=== PATIENT | male | born 1995 | race African-American/Black ===

== ENCOUNTER → 2018-01-02 | Outpatient (CLI) | payer OTHER | LOC: M LRY 10:30 | DX: M25.512 Pain in left shoulder (principal) | CPT/HCPCS: 73030; G0463 ==

== ENCOUNTER 2019-02-26 10:17 | Emergency (ER) | payer OTHER ==
[~2019-02-26] VITALS: Ht 170.2 cm; Wt 93.2 kg
[2019-02-26] MEDS ORDERED: ACETAMINOPHEN TAB 650MG DOSE (2X325MG) PO ONE (11:30)
[2019-02-26 11:39] LABS: APPEARANCE, URINE CLEAR (CLEAR); BACTERIA, URINE AUTO NEGATIVE (NEGATIVE); BILIRUBIN, URINE AUTO NEGATIVE (NEGATIVE); BLOOD, URINE BLOOD NEGATIVE (NEGATIVE); COLOR, URINE YELLOW (YELLOW); GLUCOSE, URINE (UA) AUTO NEGATIVE (NEGATIVE); KETONE, URINE AUTO NEGATIVE (NEGATIVE); LEUKOCYTE ESTERASE, URINE AUTO NEGATIVE (NEGATIVE); MUCUS, URINE SMALL (NEGATIVE); NITRITE, URINE AUTO NEGATIVE (NEGATIVE); PROTEIN, URINE AUTO NEGATIVE (NEGATIVE); RBC, URINE AUTO 0 /HPF (0-3); SPECIFIC GRAVITY URINE AUTO 1.017 (1.002-1.035); SQUAMOUS EPITHELIAL CELL UR AU 0 /HPF (0-6); UROBILINOGEN, URINE AUTO 0.2 mg/dL (0.0-2.0); WBC, URINE AUTO 0 /HPF (0-3)
[2019-02-26 11:43] LABS: BASO % 0.3 % (0.0-1.0); EOS # 0.1 10^3/uL (0.0-0.50); EOS % 2.2 % (0.0-3.0); HEMATOCRIT 45.4 % (42.0-52.0); HEMOGLOBIN 15.6 g/dl (13.5-17.5); LYMPH # 2.8 10^3/uL (1.5-6.5); LYMPH % 48.1 % (24.0-44.0); MEAN CORPUSCULAR HEMOGLOBIN 29.5 pg (27.0-33.0); MEAN CORPUSCULAR HGB CONC 34.4 g/dl (32.0-36.5); MEAN CORPUSCULAR VOLUME 85.8 fl (80.0-96.0); MONO # 0.4 10^3/uL (0.0-0.8); MONO % 6.4 % (0.0-5.0); NEUTROPHILS # 2.5 10^3/uL (1.8-7.7); NEUTROPHILS % 42.8 % (36.0-66.0); PLATELET COUNT, AUTOMATED 264 10^3/uL (150-450); RED BLOOD COUNT 5.29 10^6/uL (4.30-6.10); WHITE BLOOD COUNT 5.8 10^3/uL (4.0-10.0)
[2019-02-26 12:16] LABS: ALBUMIN 4.3 GM/DL (3.2-5.2); ALT/SGPT 40 U/L (12-78); BILIRUBIN,DIRECT < 0.1 MG/DL (0.0-0.2); BILIRUBIN,TOTAL 0.4 MG/DL (0.2-1.0); BLOOD UREA NITROGEN 15 MG/DL (7-18); CALCIUM LEVEL 9.4 MG/DL (8.5-10.1); CARBON DIOXIDE LEVEL 25 MEQ/L (21-32); CHLORIDE LEVEL 106 MEQ/L (98-107); CREATININE FOR GFR 1.05 MG/DL (0.70-1.30); GLOMERULAR FILTRATION RATE > 60.0 (>60); GLUCOSE, FASTING 99 MG/DL (70-100); LIPASE 72 U/L (73-393); POTASSIUM SERUM 4.3 MEQ/L (3.5-5.1); SODIUM LEVEL 136 MEQ/L (136-145)
[2019-02-26] MEDS ORDERED: ISOVUE-370 76% 100ML VIAL (Q9967) As Ordered ONE (12:39)
[2019-02-26] MEDS ORDERED: GI COCKTAIL 50ML BTL(HYOSCYAMINE/MAALOX/LIDOCAINE VISCOUS)(1:3:1) PO ONE (12:45)
[2019-02-26] MEDS ORDERED: OMEP10CASR PO (13:22)
[2019-02-26 13:32] VITALS: BP 142/69
== END 2019-02-26 13:35 | disposition home or self-care (01) ==
LOC: M ED 10:17
DX: K29.00 Acute gastritis without bleeding (principal); Z79.899 Other long term (current) drug therapy; F17.210 Nicotine dependence, cigarettes, uncomplicated

== ENCOUNTER → 2019-04-09 | Outpatient (CLI) | payer OTHER ==
[~2019-04-09] MED LIST: OMEP10CASR PO
--- NOTE | 2019-04-09 12:08 | REP ---
MR LUMBAR SPINE WITHOUT CONTRAST: HISTORY: Back pain. There is no disc bulge or herniation at the L1-2 through L3-4 and L5-S1 levels. The nerves exit the neural foramina without compression. A diffuse disc bulge is present at the L4-5 level. This abuts the thecal sac. The L4 nerves exit the neural foramina without compression. The conus medullaris is normal in appearance terminating at the level of the L1-2 intervertebral disc. Normal signal intensity is present in the lumbar intervertebral discs and vertebral bodies. IMPRESSION: Diffuse disc bulges at the L4-5 level. This abuts the thecal sac. Electronically Signed by Hao Lee MD 04/09/2019 12:27 P
== END ==
LOC: M RAD 07:36
PROVIDERS: ATTEND Family Medicine
DX: M51.26 Other intervertebral disc displacement, lumbar region (principal)

== ENCOUNTER 2019-10-21 08:57 | Emergency (ER) | payer OTHER ==
[~2019-10-21] VITALS: Ht 170.2 cm; Wt 88.6 kg
[2019-10-21] MEDS ORDERED: ACETAMINOPHEN 500 MG TAB PO ONE (09:45)
--- NOTE | 2019-10-21 10:02 | REP ---
Clinical: Trauma. Fall. Technique: AP, lateral, bilateral oblique views of the left hand. Findings: The osseous structures and joint spaces are intact and normal. There is no evidence for acute fracture or dislocation. Surrounding soft tissues are unremarkable. No subcutaneous emphysema or radiodense foreign body. Impression: Normal left hand series. No acute fracture or dislocation. Electronically Signed by Cullen Chao MD 10/21/2019 09:53 A
--- NOTE | 2019-10-21 10:04 | REP ---
Clinical: Trauma. Fall . Technique: Internal rotation, external rotation, and Y view right shoulder . Findings: No acute fracture or dislocation. The acromioclavicular and glenohumeral joints are intact. No periarticular calcifications or degenerative changes are appreciated. Sub acromial space is normal. Surrounding soft tissues are unremarkable. Impression: Normal right shoulder radiographs. Electronically Signed by Cullen Chao MD 10/21/2019 09:55 A
--- NOTE | 2019-10-21 10:17 | REP ---
CT brain and facial bones: 10/21/2019. Indication: Head/face trauma. Comparison: None. Technique: Unenhanced axial CT images of the brain and facial bones were performed with sagittal and coronal facial bone reconstructions provided. Findings: There is no acute intracranial hemorrhage, acute cortical infarction, mass effect, hydrocephalus or acute calvarial fracture. There is no acute facial bone fracture, subluxation or dislocation. Periosteal mucosal thickening and frothy secretions are noted within the inferior right maxillary sinus. The mastoid air cells are clear. No acute post traumatic ocular or intraorbital abnormalities are detected. Impression: No acute intracranial process. No acute facial bone fracture. Right maxillary sinus disease. Electronically Signed by Abhishek Thompson DO 10/21/2019 10:10 A
--- NOTE | 2019-10-21 10:19 | REP ---
CT brain and facial bones: 10/21/2019. Indication: Head/face trauma. Comparison: None. Technique: Unenhanced axial CT images of the brain and facial bones were performed with sagittal and coronal facial bone reconstructions provided. Findings: There is no acute intracranial hemorrhage, acute cortical infarction, mass effect, hydrocephalus or acute calvarial fracture. There is no acute facial bone fracture, subluxation or dislocation. Periosteal mucosal thickening and frothy secretions are noted within the inferior right maxillary sinus. The mastoid air cells are clear. No acute post traumatic ocular or intraorbital abnormalities are detected. The patient appears to be status post molar extractions. Please correlate. Impression: No acute intracranial process. No acute facial bone fracture. Right maxillary sinus disease. Electronically Signed by Abhishek Thompson DO 10/21/2019 10:12 A
--- NOTE | 2019-10-21 10:24 | REP ---
CT cervical spine: 10/21/2019. Indication: Cervical spine trauma. Comparison: None. Technique: A enhanced axial CT images of the cervical spine were obtained with coronal and sagittal reconstructions provided. Findings: There is no acute fracture, subluxation or dislocation. There is straightening of the cervical lordosis which may be positional. No hemorrhage or additional acute post traumatic pathologies within the spinal canal are detected. Impression: No acute cervical spine osseous injury. Electronically Signed by Abhishek Thompson DO 10/21/2019 10:15 A
[2019-10-21 11:23] VITALS: BP 142/74
== END 2019-10-21 11:25 | disposition home or self-care (01) ==
LOC: M ED 08:57
DX: R51 Headache (principal); M79.645 Pain in left finger(s); M25.512 Pain in left shoulder; S00.81XA Abrasion of other part of head, initial encounter; W10.8XXA Fall (on) (from) other stairs and steps, initial encounter; Y92.018 Other place in single-family (private) house as the place of occurrence of the external cause; Z79.899 Other long term (current) drug therapy; Z88.8 Allergy status to other drugs, medicaments and biological substances; F17.210 Nicotine dependence, cigarettes, uncomplicated